=== PATIENT | female | born 1985 | race Caucasian/White ===

== ENCOUNTER 2022-10-19 14:20 | Emergency (ER) | payer MEDICAID ==
[~2022-10-19] VITALS: Ht 157.5 cm; Wt 54.4 kg
[2022-10-19 14:25] VITALS: BP_SYST 133; PULSE 91; RESP 18; TEMP 98.5; O2SAT 97
[2022-10-19 15:25] LABS: BASOPHILS % (AUTO) 0.5 % (0.0-2.0); EOSINOPHILS % (AUTO) 0.1 % (0.0-4.0); HEMATOCRIT 41.6 % (36-48); LYMPHOCYTES # (AUTO) 1.3 K/uL (1.0-5.5); MEAN CORPUSCULAR HEMOGLOBIN 28 pg (27-31); MEAN CORPUSCULAR HGB CONC 34 % (32-36); MEAN CORPUSCULAR VOLUME 83 fL (79.0-98.0); MONOCYTES # (AUTO) 0.4 K/uL (0.0-1.0); MONOCYTES % (AUTO) 5.4 % (1.7-9.3); NEUTROPHILS # (AUTO) 5.4 K/uL (1.8-7.7); PLATELET COUNT (AUTO) 252 K/uL (130-430); RED BLOOD CELL COUNT(AUTO) 5.02 MIL/uL (4.2-6.2); RED CELL DISTRIBUTION WIDTH 13.6 % (9.0-15.0); WHITE BLOOD COUNT (AUTO) 7.1 K/uL (4.8-10.8)
[2022-10-19 15:28] LABS: ANION GAP 8 (5-15); CALCIUM 8.8 mg/dL (8.4-11.0); CHLORIDE 101 mmol/L (98-107); CREATININE 0.73 mg/dL (0.55-1.30); GFR AFRICAN AMERICAN 115 mL/min (>90); GLUCOSE 102 mg/dL (74-106); UREA NITROGEN, BLOOD 10 mg/dL (8-21)
[2022-10-19 15:35] LABS: ALANINE AMINOTRANSFERASE 16 U/L (12-78); ALBUMIN 3.7 g/dL (3.4-4.8); ASPARTATE AMINOTRANSFERASE 18 U/L (10-37); TOTAL BILIRUBIN 0.2 mg/dL (0.0-1.0)
[2022-10-19] MEDS ORDERED: KLO.5 PO (15:51)
[2022-10-19 16:10] VITALS: BP_SYST 134; PULSE 84; RESP 20; TEMP 98.2; O2SAT 98
[2022-10-19 16:24] LABS: THYROID STIMULATING HORMONE 3.74 uIu/mL (0.34-4.82)
[2022-10-21 08:06] LABS: ESTRADIOL 7.8 pg/mL (.)
== END 2022-10-19 16:11 | disposition home or self-care (01) ==
LOC: SED 14:20
DX: R07.9 Chest pain, unspecified (principal); R20.2 Paresthesia of skin; Z79.899 Other long term (current) drug therapy
CPT/HCPCS: 36415; 71045; 80053; 82670; 82672; 84439; 84443; 84484; 84703; 85025; 93005; 99285